=== PATIENT | female | born 1985 | race Caucasian/White ===

== ENCOUNTER 2018-04-08 08:54 | Inpatient (IN) | payer OTHER ==
[~2018-04-08] VITALS: Ht 180.3 cm; Wt 102.5 kg
[~2018-04-08 08:54] MED LIST: BACTRIM DS 8001 TAB PO; PYRIDIUM100 MG PO
--- NOTE | 2018-04-08 09:20 | History & Physical ---
General Information and HPI MD Statement: I have seen and personally examined KALIAQUINTON HINDS and documented this H& P. The patient is a 32 year old female at [41] weeks and [1] days gestation who presented with a chief complaint of [IOL]. Source of Information: patient Exam Limitations: no limitations History of Present Illness: 32yo, 41 1/7wks , here for IOL due to postdates. she has no complaints, denies ctxs, no VB or LOF, reports GFM. care started at 10 wks, uncomplicated thus far. GCT 144 mg/dl, GTT normal . 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 Home Smoking Status: Never Smoked ETOH Use: denies use Illicit Drug Use: denies illicit drug use Review of Systems Review of Systems Constitutional: Reports: no symptoms. EENTM: Reports: no symptoms. Cardiovascular: Reports: no symptoms. Respiratory: Reports: no symptoms. GI: Reports: no symptoms. Genitourinary: Reports: see HPI. Musculoskeletal: Reports: no symptoms. Skin: Reports: no symptoms. Neurological/Psychological: Reports: no symptoms. Hematologic/Endocrine: Reports: no symptoms. Immunologic/Allergic: Reports: no symptoms. All Other Systems: Reviewed and Negative Date of LMP: 06/24/17 Post Menopausal: No Exam & Diagnostic Data Last 24 Hrs of Vital Signs/I&O Intake & Output 04/08 1600 05/ 0800 05/ 0000 Intake Total Output Total Balance Patient 102.512 kg Weight Obstetric Exam Wgt Gained During : 28lbs Pelvimetry: adequate Dilation (cm): 1 Effacement (%): 20 Station: -3 Membranes: intact Fluid: unknown Fundal Height (cm): 40 Multiple Gestation? No Contractions: occasional Infant #1 - FHR Baseline: 140 Category: 1 Estimated Weight: 3800g Presentation: vertex Patient for Induction? Yes Wang Score Wang Score Response Value Cervix Position: posterior 0 Cervix Consistency: medium 1 Cervix Effacement: 0-30% 0 Cervix Dilation: 1-2 cm 1 Cervix Station: -3 0 Total 2 Physical Exam: VSS General: NAD Abdomen: soft, gravid, nontender Ext: DCT (-) Labs Blood Type & Rh: A positive Antibody Screen: negative Hct/Hgb & Platelets #1: 12.8/39.7%,PLT 332683 Hct/Hgb & Platelets #2: 11.5/36.6%,PLT [id number] Rubella: immune VDRL #1: negative VDRL #2: negative HbsAg: negative HIV #1: negative HIV #2 negative 1 Hr P 3 Hr P/157/131/99 Group B Strep: negative Initial Ultrasound: IUP at 10 wks Anatomy Ultrasound: nl Genetic Testing: n l Last 24 Hrs of Labs/Abhilash: Laboratory Tests 04/08/18 0930: CBC w Diff Pending, WBC Pending, RBC Pending, Hgb Pending, Hct Pending, MCV Pending, MCH Pending, MCHC Pending, RDW Pending, Plt Count Pending, MPV Pending Assessment/Plan Assessment/Plan: 32yo, , 41 /17wks IOL 1.admit pt, admisison labs 2. R/B/A of IOL d/w pt, she understand and agreed, R/B/A of misoprostol and folet catheter for IOL d/w pt, she understand, all questions answered, informed consent obtained. folet catheter inserted in to cervix in sterile fashion, 30ml NS was used to inflate the balloon . pt tolerate well. 25 mcg placed into vagina at 10: 20AM. 3. will monmitor closely As Ranked By This Provider Problem List: 1. 2. Post-dates Core Measures Venous Thromboembolism VTE Risk Factors / No Mechanical VTE Prophylaxis d/t LowRisk-No Interven Req'd No VTE Pharm Prophylaxis d/t LowRisk-No Interven Releanne'd Attending MD Review Statement Attending Statement Attending MD Statement: examined this patient, discussed with family, discussed w/nursing
[2018-04-08] MEDS ORDERED: PRENATAL TABLE1 EAC2 PO (09:39)
[2018-04-08 10:39] LABS: ABSOLUTE BASOPHIL COUNT 0 /CUMM (0.0-0.2); ABSOLUTE EOSINOPHIL COUNT 0.1 /CUMM (0.0-0.7); ABSOLUTE GRANULOCYTE CT 6.1 /CUMM (1.4-6.5); ABSOLUTE LYMPH COUNT 1.8 /CUMM (1.2-3.4); ABSOLUTE MONOCYTE COUNT 0.7 /CUMM (0.10-0.60); BASOPHIL % 0.3 % (0.0-2.0); EOSINOPHIL % 1.1 % (0-5); GRANULOCYTE % 70.1 % (42.2-75.2); HEMATOCRIT 36.1 % (37-47); MEAN CORPUSCULAR HGB 29.9 PG (27.0-31.0); MEAN CORPUSCULAR HGB CONC 32.4 G/DL (33.0-37.0); MEAN CORPUSCULAR VOLUME 92.2 FL (81.0-99.0); PLATELET COUNT 204 /CUMM (130-400); RBC DISTRIBUTION WIDTH 13.5 % (11.5-14.5); RED BLOOD CELL CT 3.91 /CUMM (4.20-5.40); WHITE BLOOD CELL COUNT 8.7 /CUMM (4.8-10.8)
--- NOTE | 2018-04-08 15:16 | PN- OBGYN ---
Surgical Brief Attending Note Brief Attending Note: pt c/o feels ctxs pain, no request pain management yet on TOCO: ctxs q2-3 , FHR cat I boss balloon in place, will defer 2nd dose of misoprostol, will monitor closely
--- NOTE | 2018-04-08 16:49 | PN- OBGYN ---
Surgical Brief Attending Note Brief Attending Note: called by RN, boss balloon fell out at 4 PM, pt c/o ctxs pain 03/10. on TOCO: ctxs q 1-2 min, FHR alex I cervix 2-3 cm/60%/-3 will give fluid bolus, will monitor closely
--- NOTE | 2018-04-09 08:28 | PN- OBGYN ---
Surgical Brief Attending Note Brief Attending Note: Late entry for 5: 40AM called by RN, pt is comfortable with epidural, ctxs space out, irregular now on TOCO: ctxs irregular, FHR cat I cervix 5-6cm ( by RN) will start pitocin augmentation, monitor closely
--- NOTE | 2018-04-09 08:52 | PN- OBGYN ---
Surgical Brief Attending Note Brief Attending Note: Pr examined 7 cm 90 % 0 station AROM Clear fluid FHR 144 with occasional variables pitocin on low dose plan continue low dose pit position change as needed expectant management.
[2018-04-10 08:57] LABS: ABSOLUTE BASOPHIL COUNT 0 /CUMM (0.0-0.2); ABSOLUTE EOSINOPHIL COUNT 0.1 /CUMM (0.0-0.7); ABSOLUTE LYMPH COUNT 1.9 /CUMM (1.2-3.4)
[2018-04-10 09:07] LABS: ABSOLUTE GRANULOCYTE CT 6.4 /CUMM (1.4-6.5); ABSOLUTE MONOCYTE COUNT 0.8 /CUMM (0.10-0.60); BASOPHIL % 0.2 % (0.0-2.0); EOSINOPHIL % 1.3 % (0-5); GRANULOCYTE % 69.3 % (42.2-75.2); MEAN CORPUSCULAR HGB 29.7 PG (27.0-31.0); MEAN CORPUSCULAR HGB CONC 31.7 G/DL (33.0-37.0); MEAN CORPUSCULAR VOLUME 93.7 FL (81.0-99.0); MEAN PLATELET VOLUME 8.8 FL (7.4-10.4); PLATELET COUNT 162 /CUMM (130-400); RBC DISTRIBUTION WIDTH 14.1 % (11.5-14.5); RED BLOOD CELL CT 2.98 /CUMM (4.20-5.40); WHITE BLOOD CELL COUNT 9.2 /CUMM (4.8-10.8)
--- NOTE | 2018-04-10 14:34 | PN- OBGYN ---
Surgical Brief Attending Note Brief Attending Note: pt feeling well. some difficulty bf - getting help w/ lc and nursing. amb / void / katy po. pain well controlled w/ motrin. afeb, v/ss nad abd soft nt ff abby mod lochia ext nt +1 b/l le ed hct 36 -->28 a/p ppd 1 s/p , doing well -enc oob / amb -routine pp care -ant d/c home sofia w/ f/u 2 wks
[2018-04-10] MEDS ORDERED: IBUPROFEN800 M1 PO (14:36)
--- NOTE | 2018-04-11 08:58 | PN- OBGYN ---
Surgical Brief Attending Note Brief Attending Note: pt feeling well. amb / void / katy po. afeb, v/ss nad abd soft nt ff abby mod lochia ext nt tr b/l le ed a/p ppd 2 s/p , doing well -d/c instructions reviewed -d/c home w/ f/u in office in 2 wks, at in 2 d
== END 2018-04-11 11:55 | DRG 775 ==
LOC: GNO 08:54
PROVIDERS: Obstetrics & Gynecology
PROC: 3E0P7VZ Introduction of Hormone into Female Reproductive, Via Natural or Artificial Opening (ICD-10-PCS; 2018-04-08)
PROC: 0U7C7ZZ Dilation of Cervix, Via Natural or Artificial Opening (ICD-10-PCS; 2018-04-08)
PROC: 10E0XZZ Delivery of Products of Conception, External Approach (ICD-10-PCS; principal; 2018-04-09)
PROC: 3E033VJ Introduction of Other Hormone into Peripheral Vein, Percutaneous Approach (ICD-10-PCS; 2018-04-09)
DX: O48.0 Post-term pregnancy (principal); O76 Abnormality in fetal heart rate and rhythm complicating labor and delivery; Z3A.41 41 weeks gestation of pregnancy; Z37.0 Single live birth
CPT/HCPCS: 87070; 87075; 87205; GNOP; GNOS; 36415; 81001; 87086; 87147; 88307; J0131; J2210; J7120